=== PATIENT | female | born 1995 ===

== ENCOUNTER 2016-09-04 19:19 | Emergency (ER) | payer SELFPAY ==
[2016-09-04 19:35] VITALS: RESP 20; O2SAT 100
[2016-09-04] MEDS ORDERED: Sodium Chloride 0.9% 1,000 ML IV ONE (19:53)
[2016-09-04] MEDS ORDERED: Sodium Chloride 0.9% 1,000 ML ONE (20:00)
--- NOTE | 2016-09-04 20:11 | C.PDOC ---
History Of Present Illness A 21 y/o female c/o abdominal pain that began yesterday. Pt notes the abdominal pain to be in the epigastric and mid abdominal area with an episode of diarrhea today. Pt notes mild nausea, but denies fever, chills, dysuria, hematuria, vaginal bleeding, discharge, vomiting, or any other complaints. Pt notes her LMP was August 06, 2016. Time Seen by Provider: 09/04/16 20:00 Chief Complaint (Nursing): Abdominal Pain History Per: Patient History/Exam Limitations: no limitations Onset/Duration Of Symptoms: Days Current Symptoms Are (Timing): Still Present Severity: Mild Location Of Pain/Discomfort: Epigastric, Other (Mid abdominal) Radiation Of Pain To:: None Associated Symptoms: Nausea, Diarrhea. denies: Fever, Chills, Vomiting Recent travel outside of the [place]: No Additional History Per: Patient Abnormal Vaginal Bleeding: No Last Menstral Period: August 06, 2016 Past Medical History Reviewed: Historical Data, Nursing Documentation, Vital Signs Vital Signs: Last Vital Signs Temp Pulse 87 09/04/16 19:30 Resp 20 09/04/16 19:30 BP 127/61 09/04/16 19:30 Pulse Ox 100 09/04/16 20:16 Family History: States: Unknown Family Hx - Social History Hx Alcohol Use: No Hx Substance Use: No Review Of Systems Except As Marked, All Systems Reviewed And Found Negative. Constitutional: Negative for: Fever, Chills Gastrointestinal: Positive for: Nausea, Abdominal Pain, Diarrhea. Negative for : Vomiting Genitourinary: Negative for: Dysuria, Hematuria, Vaginal Discharge, Vaginal Bleeding Physical Exam - Physical Exam Appears: Non-toxic, No Acute Distress Skin: Warm, Dry Head: Atraumatic, Normacephalic Eye(s): bilateral: Normal Inspection Oral Mucosa: Moist Chest: Symmetrical Cardiovascular: Rhythm Regular Respiratory: Normal Breath Sounds, No Accessory Muscle Use, No Rales, No Rhonchi , No Wheezing Gastrointestinal/Abdominal: Soft, Tenderness (Epigastric and hypogastric area), No Guarding, No Rebound Back: Normal Inspection, No CVA Tenderness Neurological/Psych: Oriented x3, Normal Speech, Normal Cognition, Other (No focal deficit) Gait: Steady ED Course And Treatment - Laboratory Results Result Diagrams: 09/04/16 20:11 09/04/16 20:11 O2 Sat by Pulse Oximetry: 100 (RA) Pulse Ox Interpretation: Normal Medical Decision Making Medical Decision Making: Impression: A 21 y/o female c/o abdominal pain that began yesterday. With one episode of diarrhea and mild nausea that began today. Plans: Blood labs Pepcid IV fluids Reassess Disposition Counseled Patient/Family Regarding: Diagnosis - Disposition Referrals: [facility] [Outside] Disposition Time: 21:38 Condition: STABLE Prescriptions: Famotidine [Pepcid] 20 mg PO BID #20 tab Sucralfate [Carafate] 1 gm PO BID #20 tab Instructions: Gastritis (GEN), Abdominal Pain (ED) Forms: Gen Discharge Inst Welsh Print Language: MALTESE - POA Present On Arrival: None - Clinical Impression Clinical Impression: Abdominal pain, Gastritis - Scribe Statement The provider has reviewed the documentation as recorded by the Scribjackie wells All medical record entries made by the Jayantibe were at my direction and personally dictated by me. I have reviewed the chart and agree that the record accurately reflects my personal performance of the history, physical exam, medical decision making, and the department course for this patient. I have also personally directed, reviewed, and agree with the discharge instructions and disposition.
[2016-09-04 20:16] LABS: BASO % 0.3 % (0.0-2.0); EOS # 0.1 K/uL (0.0-0.7); EOS % 0.7 % (0.0-4.0); HEMATOCRIT 37.2 % (34.0-47.0); LYMPH # 1.8 K/uL (1.0-4.3); LYMPH % 16.3 % (20.0-40.0); MEAN CELL VOLUME 86.2 fL (81.0-99.0); MEAN CORPUSCULAR HEMOGLOBIN 29.5 pg (27.0-31.0); MEAN CORPUSCULAR HGB CONC 34.2 g/dL (33.0-37.0); MEAN PLATELET VOLUME 8.2 fL (7.2-11.7); MONO % 8.8 % (0.0-10.0); WHITE BLOOD COUNT 11.3 K/uL (4.8-10.8)
[2016-09-04 20:24] LABS: RBC URINE 8 /hpf (0-3); URINE BACTERIA OCC (<OCC); URINE BILIRUBIN NEGATIVE (NEGATIVE); URINE COLOR Yellow (YELLOW); URINE GLUCOSE (UA) NORMAL (Normal); URINE KETONE NEGATIVE (NEGATIVE); URINE PROTEIN NEGATIVE (NEGATIVE); WBC URINE 5 /hpf (0-5)
[2016-09-04 20:25] LABS: URINE BLOOD TRACE (NEGATIVE); URINE LEUKOCYTE ESTERASE TRACE Leu/uL (Negative)
[2016-09-04 20:30] LABS: CHLORIDE 100 mmol/L (98-107)
[2016-09-04 20:31] LABS: POTASSIUM 3.4 mmol/L (3.6-5.2); SODIUM 134 mmol/L (132-148)
[2016-09-04 20:33] LABS: CARBON DIOXIDE 24 mmol/L (22-30); GFR AFRICAN-AMERICAN > 60
[2016-09-04 20:34] LABS: ALKALINE PHOSPHATASE 102 U/L (38-126); ALT/SGPT 33 U/L (9-52); AST/SGOT 23 U/L (14-36); BILIRUBIN,TOTAL 0.7 mg/dL (0.2-1.3); BLOOD UREA NITROGEN 12 mg/dL (7-17); CALCIUM 8.9 mg/dl (8.6-10.4); GLUCOSE,RANDOM 93 mg/dL (65-105); TOTAL PROTEIN 7.5 g/dL (6.3-8.3)
[2016-09-04 21:55] VITALS: BP 136/81; PULSE 74
== END 2016-09-04 21:53 | disposition home or self-care (01) ==
LOC: C.ER 19:19
DX: K29.70 Gastritis, unspecified, without bleeding (principal)
CPT/HCPCS: 80053; 81001; 83690; 84702; 84703; 85025; 96361; 96374; 99283; J7040